=== PATIENT | female | born 1965 | race Caucasian/White ===

== ENCOUNTER 2020-01-30 11:22 | Emergency (ER) | payer MEDICAID ==
[2020-01-30 11:34] VITALS: BP 154/93; PULSE 102
--- NOTE | 2020-01-30 12:08 | EDM.PDOC ---
ED HPI GENERAL MEDICAL PROBLEM - General Chief Complaint: Lower Extremity Injury/Pain Stated Complaint: LARGE/LUMPY VEINS ON LEGS Time Seen by Provider: 01/30/20 11:45 Source of Information: Reports: Patient History Limitations: Reports: No Limitations - History of Present Illness INITIAL COMMENTS - FREE TEXT/NARRATIVE: 54-year-old female who noticed lumpy, larger superficial veins in the popliteal area of her right leg this morning and became concerned. It was her boyfriend who actually noticed and pointed them out to her. They seem to be gone now. They were worried about "blood clots". She does have a severe injury to that right lower leg 8 years ago, resulting in surgeries for compartment syndrome and fracture repair. Onset: Unknown/Unsure Associated Symptoms: Denies: Chest Pain, Fever/Chills, Loss of Appetite, Malaise, Nausea/Vomiting, Shortness of Breath, Weakness - Related Data Allergies Allergy/AdvReac Type Severity Reaction Status Date / Time No Known Allergies Allergy Verified 01/30/20 11:48 Home Meds: Home Meds NK [No Known Home Meds] 01/30/20 [History] Past Medical History Cardiovascular History: Reports: Heart Murmur [employer] History: Reports: Psychiatric History: Reports: Anxiety, Depression - Past Surgical History HEENT Surgical History: Reports: Tonsillectomy GI Surgical History: Reports: Cholecystectomy Female Surgical History: Reports: Hysterectomy Musculoskeletal Surgical History: Reports: Knee Replacement Social & Family History - Tobacco Use Smoking Status *Q: Light Tobacco Smoker Years of Tobacco use: 40 Packs/Tins Daily: 0.5 - Caffeine Use Caffeine Use: Reports: None - Recreational Drug Use Recreational Drug Use: No Review of Systems - Review of Systems Review Of Systems: See Below Constitutional: Denies: Fever Respiratory: Denies: Shortness of Breath Cardiovascular: Denies: Chest Pain Musculoskeletal: Denies: Leg Pain Skin: Reports: Other (Color in her feet seem "off", kind of dusky) Neurological: Reports: Other (She has chronic numbness and paresthesias in her r ight leg) ED EXAM, GENERAL - Physical Exam Exam: See Below Exam Limited By: No Limitations General Appearance: Alert, No Apparent Distress Head: Atraumatic Respiratory/Chest: No Respiratory Distress, Lungs Clear Cardiovascular: Regular Rate, Rhythm Extremities: Other (Large lateral scars on the lower extremity are healed from her past escharotomy. There is minimal varicose veins in the popliteal area, she admits this is much less than it was this morning. No significant lower extremity edema bilaterally.) Course - Vital Signs Last Recorded V/S: Last Vital Signs Temp 96.3 F L 01/30/20 11:47 Pulse 102 H 01/30/20 11:47 Resp 20 01/30/20 11:47 BP 154/93 H 01/30/20 11:47 Pulse Ox 95 01/30/20 11:47 - Re-Assessments/Exams Free Text/Narrative Re-Assessment/Exam: 01/30/20 12:06 Patient was reassured that she has some varicosities in the lower extremity, there is no sign of any deep vein thrombosis at this time. Encouraged her to get a regular doctor that she can get a physical, and some vascular studies on her lower legs and then a possible consultation with Dr. Patiño if problems persist. Departure - Departure Time of Disposition: 12:27 Disposition: Home, Self-Care 01 Clinical Impression: Varicose veins of both lower extremities Qualifiers: Varicose vein complication: asymptomatic Qualified Code(s): I83.93 - Asymptomatic varicose veins of bilateral lower extremities - Discharge Information Instructions: Varicose Veins Referrals: PCP,None [Primary Care Provider] - Forms: ED Department Discharge Care Plan Goals: Support stockings may be helpful, continue activity as tolerated. Consider making an appointment with Dr. Lomas as your primary provider and eventually with Dr. Patiño for consultation of varicose veins. Return sooner if increased pain or swelling. Sepsis Event Note (ED) - Evaluation Sepsis Screening Result: No Definite Risk - Focused Exam Vital Signs: Vital Signs Temp Pulse Resp BP Pulse Ox 01/30/20 11:47 96.3 F L 102 H 20 154/93 H 95 01/30/20 11:32 96.3 F L 102 H 20 154/93 H 95
== END 2020-01-30 12:26 | disposition home or self-care (01) ==
LOC: JP.ED 11:22
DX: I83.93 Asymptomatic varicose veins of bilateral lower extremities (principal); F17.290 Nicotine dependence, other tobacco product, uncomplicated
CPT/HCPCS: 99282; 99283